=== PATIENT | female | born 1995 | race Hispanic/Latino ===

== ENCOUNTER 2018-08-06 15:31 | Outpatient (CLI) | payer MEDICAID ==
[2018-08-06] MEDS ORDERED: LACTATED RINGERS 500 ML IV ONE (15:46)
[2018-08-06 15:59] VITALS: BP 116/66
[2018-08-06 17:29] LABS: Bacteria,Urine 1+ /HPF (Negative); Bilirubin,Urine NEG (Negative); Blood,Urine NEG (Negative); Color,Urine Straw (Yellow); Mucus,Urine FEW /HPF; Protein,Urine <15 mg/dL mg/dL (Negative); Urobilinogen,Urine < 2.0 mg/dL (<2.0); WBC,Urine < 1.0 /HPF (0.0-6.0)
--- NOTE | 2018-08-06 18:28 | Ultrasound Report ---
FINAL REPORT EXAM: US OB LIMITED HISTORY: bebe TECHNIQUE: Ultrasound evaluation of the gravid uterus PRIORS: None. FINDINGS: There is a single viable intrauterine with documented cardiac activity. The quantity of vis ualized amniotic fluid appears grossly normal. Limited examination to evaluate amniotic fluid Heart rate: 162 beats per minute position: Cephalic Amniotic fluid index: 17.5cm IMPRESSION: Single viable intrauterine with normal quantity amniotic fluid
== END 2018-08-06 18:08 | disposition home or self-care (01) ==
LOC: TRG 15:31
PROVIDERS: ATTEND Obstetrics & Gynecology
DX: O47.03 False labor before 37 completed weeks of gestation, third trimester (principal); Z3A.35 35 weeks gestation of pregnancy
CPT/HCPCS: 59025; 76815; 81001; 96360; J7120

== ENCOUNTER 2018-08-23 23:24 | Outpatient (CLI) | payer MEDICAID ==
[2018-08-24] MEDS ORDERED: LACTATED RINGERS 1,000 ML IV SCH
[2018-08-24 00:37] LABS: Bilirubin,Urine NEG (Negative); Blood,Urine NEG (Negative); Color,Urine Yellow (Yellow); Mucus,Urine FEW /HPF; Protein,Urine <15 mg/dL mg/dL (Negative); Urobilinogen,Urine < 2.0 mg/dL (<2.0)
[2018-08-24] MEDS ORDERED: XYLOCAINE 1% MPF 5 mL INFILTRATI ONE (01:07)
[2018-08-24] MEDS ORDERED: ROCEPHIN IM ONE (01:20)
[2018-08-24] MEDS ORDERED: TYLENOL #3 PO ONE (01:20)
[2018-08-25 13:05] VITALS: BP 121/61
== END 2018-08-24 01:50 | disposition home or self-care (01) ==
LOC: TRG 23:24
PROVIDERS: ATTEND Obstetrics & Gynecology
DX: O62.8 Other abnormalities of forces of labor (principal); O26.893 Other specified pregnancy related conditions, third trimester; R10.2 Pelvic and perineal pain; M54.9 Dorsalgia, unspecified; Z3A.37 37 weeks gestation of pregnancy
CPT/HCPCS: 81001; J0696; J7120

== ENCOUNTER 2018-09-04 05:37 | Inpatient (IN) | payer MEDICAID ==
[2018-09-04] MEDS ORDERED: LACTATED RINGERS 1,000 ML IV SCH (06:00)
[2018-09-04] MEDS ORDERED: ANCEF/STERILE WATER 2 GM/20 ML 2 GM/20 ML SYRINGE IV NR (06:00)
[2018-09-04] MEDS ORDERED: PITOCin/NS 20 UNIT/1000ML DRIP 20 UNITS/1,000 ML BAG IV SCH ×2 (06:00→10:00)
[2018-09-04 06:26] LABS: Basophils % (Auto) 0.4 % (0.0-1.8); Eosinophils # (Auto) 0.2 K/mm3 (0.0-0.4); Eosinophils % (Auto) 1.7 % (0.0-4.3); Hematocrit 31.4 % (30.3-42.9); Hemoglobin 10.1 gm/dl (10.1-14.3); Lymphocytes # (Auto) 2.9 K/mm3 (1.2-5.4); Mean Corpuscular HGB Conc 32 % (30-34); Mean Corpuscular Volume 77 fl (79-97); Monocytes # (Auto) 1.2 K/mm3 (0.0-0.8); Monocytes % (Auto) 9.1 % (0.0-7.3); Platelet Count 319 K/mm3 (140-440); Red Blood Count 4.07 M/mm3 (3.65-5.03); Red Cell Distribution Width 16.8 % (13.2-15.2)
[2018-09-04] MEDS ORDERED: PEPCID IV ONE (07:00)
[2018-09-04] MEDS ORDERED: REGLAN IV ONE (07:00)
[2018-09-04] MEDS ORDERED: BICITRA PO ONE (07:00)
[2018-09-04] MEDS ORDERED: ZOFRAN ONE ×2 (07:58→08:49)
[2018-09-04] MEDS ORDERED: ASTRAMORPH PF 10MG/10ML ONE (07:58)
[2018-09-04] MEDS ORDERED: NEO SYNEPHRINE/NS Syringe(OR USE) IV ONE (08:18)
[2018-09-04] MEDS ORDERED: LACTATED RINGERS 1,000 ML ONE (08:25)
[2018-09-04] MEDS ORDERED: NACL 0.9% IR ONE (08:40)
[2018-09-04] MEDS ORDERED: WATER FOR IRRIG STERILE IR ONE (08:40)
[2018-09-04] MEDS ORDERED: VERSED ONE ×3 (08:43→08:57)
[2018-09-04] MEDS ORDERED: BENADRYL ONE (08:49)
[2018-09-04] MEDS ORDERED: TORADOL ONE (08:50)
[2018-09-04] MEDS ORDERED: NARCAN 0.4 MG/1 ML IV PRN ×2 (09:22→09:33)
[2018-09-04] MEDS ORDERED: LANSINOH TP PRN (09:22)
[2018-09-04] MEDS ORDERED: ZOFRAN IV PRN ×2 (09:22→09:33)
[2018-09-04] MEDS ORDERED: MYLICON PO PRN (09:22)
[2018-09-04] MEDS ORDERED: PHENERGAN PR PRN ×2 (09:22→09:33)
[2018-09-04] MEDS ORDERED: TUCKS PAD TP PRN (09:22)
[2018-09-04] MEDS ORDERED: MORPHINE IV PRN (09:22)
[2018-09-04] MEDS ORDERED: AFLURIA QUAD 2018-2019 SYRINGE IM ONE (09:22)
[2018-09-04] MEDS ORDERED: NUBAIN IV PRN (09:33)
[2018-09-04] MEDS ORDERED: PHENERGAN PO PRN (09:33)
--- NOTE | 2018-09-04 09:35 | Anesthesia Consultation ---
Anesthesia Consult and Med Hx - Airway Anesthetic Teeth Evaluation: Good ROM Head & Neck: Adequate Mental/Hyoid Distance: Adequate Mallampati Class: Class I Intubation Access Assessment: Good - Pulmonary Exam CTA: Yes - Cardiac Exam Cardiac Exam: RRR - Pre-Operative Health Status ASA Pre-Surgery Classification: ASA2 Proposed Anesthetic Plan: Spinal - Pulmonary Hx Smoking: Yes Hx Asthma: No COPD: No Hx Pneumonia: No - Cardiovascular System Hx Hypertension: No - Central Nervous System Hx Seizures: Yes (childhood-last seizure 12yrs old) Hx Psychiatric Problems: No - Endocrine Hx Renal Disease: No Hx End Stage Renal Disease: No Hx Hypothyroidism: No Hx Hyperthyroidism: No - Hematic Hx Anemia: Yes (not taking IRON) Hx Sickle Cell Disease: No - Other Systems Hx Alcohol Use: No Hx Obesity: Yes
--- NOTE | 2018-09-04 09:35 | History and Physical Report ---
History of Present Illness Date of examination: 09/04/18 Date of admission: 09/04/18 05:37 Chief complaint: I'm here for my History of present illness: Patient is a 23 year old who presents for elective repeat at 39.3 weeks with EDC 09/09/18. Patient has had an uncomplicated course except for presentation in the 2nd trimester. She is also requesting a tubal ligation today. Past History Past Medical History: no pertinent history Past Surgical History: section Social history: , smoking - Obstetrical History Expected Date of Delivery: 09/09/18 Actual Gestation: 39 Week(s) 2 Day(s) : 5 Para: 1 Medications and Allergies Allergies Allergy/AdvReac Type Severity Reaction Status Date / Time No Known Allergies Allergy Verified 09/04/18 05:51 Home Medications Medication Instructions Recorded Confirmed Last Taken Type Docusate Sodium [Colace] 100 mg PO BID PRN #60 capsule 09/11/15 Unknown Rx Ibuprofen [Motrin] 800 mg PO Q8HR PRN #30 tablet 09/11/15 Unknown Rx Oxycodone HCl/Acetaminophen 1 each PO Q6HR PRN #40 tablet 09/11/15 Unknown Rx [Percocet 7.5/325 mg] Cephalexin [Keflex] 500 mg PO BID #14 capsule 08/24/18 Unknown Rx Active Meds: Active Medications Cefazolin Sodium (Ancef/Sterile Water 2 Gm/20 Ml) 2 gm in 20 mls @ 80 mls/hr IV PREOP NR; Protocol Stop: 09/04/18 23:45 Lactated Ringer's (Lactated Ringers) 1,000 mls @ 2,250 mls/hr IV PREOP REJI Stop: 09/05/18 06:27 Oxytocin/Sodium Chloride (Pitocin/Ns 20 Unit/1000ml Drip) 20 units in 1,000 mls @ 0 mls/hr IV TITR REJI Review of Systems All systems: negative Gastrointestinal: abdominal pain - Vital Signs Vital signs: Vital Signs Pulse BP 76 117/70 09/04/18 06:13 09/04/18 06:13 Temp Pulse Resp BP Pulse Ox 97.4 F L 76 18 117/70 09/04/18 06:45 09/04/18 06:13 09/04/18 06:45 09/04/18 06:13 - Physical Exam Breasts: Cardiovascular: Regular rate, Normal S1, Normal S2 Lungs: Positive: Clear to auscultation, Normal air movement Abdomen: Positive: normal appearance, soft, normal bowel sounds. Negative: distention, tenderness Vulva: both: normal Vagina: Positive: normal moisture. Negative: discharge Cervix: Negative: lesion, discharge Uterus: Positive: normal size, normal contour Adnexa: both: normal Anus/Rectum: Positive: normal perianal skin, heme negative. Negative: rectal mass, hemorrhoids Extremities: Deep Tendon Reflex Grade: Normal +2 - Obstetrical FHR: auscultation normal Uterine Contraction Monitor Mode: External Cervical Dilatation: 0 Uterine Contraction Pattern: Absent Results Result Diagrams: 09/04/18 06:00 Abnormal lab results 09/04/18 Range/Units 06:00 WBC 13.3 H (4.5-11.0) K/mm3 MCV 77 L (79-97) fl MCH 25 L (28-32) pg RDW 16.8 H (13.2-15.2) % [place] % (Auto) 9.1 H (0.0-7.3) % [place] # 1.2 H (0.0-0.8) K/mm3 Seg Neutrophils # 8.9 H (1.8-7.7) K/mm3 All other labs normal. Assessment and Plan IUP at 39.3 weeks here for elective repeat . Admit for surgery. Will proceed as planned.
--- NOTE | 2018-09-04 09:36 | Post Anesthesia Evaluation ---
- Post Anesthesia Evaluation Patient Participated: Yes Airway Patent: Yes Stable Respiratory Function: Yes Nausea/Vomiting: No Temp > 96.8F: Yes Pain Manageable: Yes Adequeate Hydration: Yes Anesthesia Complications: No Block Receding Appropriately: Yes Patient on Ventilator: No
--- NOTE | 2018-09-04 09:36 | Anesthesia Day of Surgery ---
Anesthesia Day of Surgery - Day of Surgery Patient Examined: Yes Patient H&P Reviewed: Yes Patient is NPO: Yes Beta Blockers: No Cardiac Clearance: No Pulmonary Clearance: No Jesse's Test: N/A
--- NOTE | 2018-09-04 09:39 | Procedure Note ---
OB Delivery Note - Delivery Date of Delivery: 09/04/18 Surgeon: BRENT KWON Estimated blood loss: 500cc - Section Preop diagnosis: repeat , desires sterilization Postop diagnosis: same section procedure: repeat low transverse, bilateral tubal ligation Disposition: PACU Complications: none Narrative: see op report - Infant A at 1 minute: 8 at 5 minutes: 9 Gender: Female (7 pounds 3182 grams)
--- NOTE | 2018-09-04 09:44 | Operative Report ---
Operative Report Operative Report: The operative report for patient Verna Fung Date of service 09/09/2018 Preoperative diagnosis: Intrauterine at 39-2/7 weeks 2. Previous x 1 3. Undesired fertility Postoperative diagnosis: Same Procedure: Repeat low transverse section Surgeon: Dr. Cheryl Jean Baptiste EBL: 500 Urine output: 150 mL IV fluids: 2000 mL LR Findings: Viable female in the vertex occiput anterior position. Weight 7 lbs. 0 oz. 3182 g Apgars 8 and 9]. Otherwise normal pelvic anatomy Specimens: Portion of right and left fallopian tube Complications: None Procedure: The patient was admitted to the OR with IV running and in place. She was properly identified as herself. She was given spinal anesthesia in the OR without difficulty.. She was placed in the dorsal supine position with a leftward tilt. A Leger catheter was inserted. She was then prepped and draped in the normal sterile fashion. An Allis test was used to confirm adequate anesthesia. Once confirmed, the incision was made with the scalpel and carried to the underlying fascia using the scalpel and the Bovie. The fascia was incised in the midline and incision was extended bilaterally using the curved Zimmerman scissors. The fascia was then dissected from the underlying rectus muscles in a series of sharp and blunt dissection using the Zimmerman scissors and the scalpel due to extensive scar tissue. Muscles were in the in the midline sharply using Metzenbaum scissors and the peritoneum was entered into bluntly using the surgeon's fingers. A bladder blade was then placed into the incision to protect the bladder. Following this the bladder flap was created. Hysterotomy incision was then made in the scalpel. Upon uterine entry, the amniotic sac was ruptured for clear fluid. The infant was then delivered in the occiput anterior position. Her mouth and nose were suctioned on the field. The cord was clamped and cut and she was handed to the waiting NICU personnel. The placenta was delivered manually and taken off the field. The uterus was then exteriorized and cleared of all clots and debris. The hysterotomy incision was then closed in a running locked fashion using 0 Vicryl. Attention was then turned to the fallopian tubes. Each tube was grasped with a [place] clamp in the mid section and the tubes were ligated in the [place] fashion. The abdomen was then copiously irrigated with warm normal saline. Following this the uterus was replaced into the abdominal cavity. At this point the muscles were reapproximated in the midline using individual sutures of 0 Vicryl. Following this the fascia was closed in a running fashion using 0 Vicryl. Tissue was then copiously irrigated. A retention suture was placed in the subcuticular fat. Skin was closed in a running fashion using 3-0 Monocryl. The sponge lap needle and instrument counts were correct 2. There was excellent hemostasis. The patient tolerated the procedure well. She was taken to recovery in stable condition.
[2018-09-04] MEDS ORDERED: SODIUM CHLORIDE FLUSH SYRINGE 10 ML IV NR ×2 (10:00)
[2018-09-04] MEDS ORDERED: D5LR 1,000 ML IV SCH (10:00)
[2018-09-04] MEDS: TORADOL IV PRN ×2 (13:52→20:11)
[2018-09-04 21:17] LABS: Hematocrit 27.3 % (30.3-42.9); Hemoglobin 8.9 gm/dl (10.1-14.3)
[2018-09-05] MEDS: PERCOCET 5/325 PO PRN ×4 (05:16→20:11)
[2018-09-05] MEDS: PRENATAL VITAMIN PO SCH (10:21)
[2018-09-05] MEDS: FEOSOL PO SCH (10:21)
--- NOTE | 2018-09-05 22:41 | Progress Note ---
Assessment and Plan {PD 2 s/p r;tcs with btl. Doing well. Plan for discharge on tomorrow Subjective - Subjective Date of service: 09/05/18 Interval history: Patient is a 23 year old who presents for elective repeat at 39.3 weeks with EDC 09/09/18. Patient has had an uncomplicated course except for presentation in the 2nd trimester. She is also requesting a tubal ligation today. Patient reports: appetite normal, voiding normally, pain well controlled, ambulating normally [place]: doing well Objective - Vital Signs Latest vital signs: Vital Signs Temp Pulse Resp BP BP Pulse Ox 09/05/18 21:11 16 09/05/18 20:11 18 09/05/18 16:50 98.2 F 86 18 107/67 100 09/05/18 07:46 97.5 F L 82 18 115/81 98 09/05/18 05:16 20 09/05/18 04:40 98.4 F 73 20 124/53 09/05/18 02:11 80 96 09/05/18 00:00 98.2 F 80 20 100/50 09/04/18 22:53 20 Intake and Output 09/05/18 09/05/18 09/05/18 06:59 14:59 22:59 Intake Total 120 1320 Output Total 100 Balance 20 1320 Intake: Oral 120 600 Intake, Free Water 720 Output: Urine 100 Void 100 Other: Total, Intake Amount 120 600 Total, Output Amount 100 # Voids Void 1 4 - Exam Cardiovascular: Present: Regular rate, Normal S1, Normal S2 Lungs: Present: Clear to auscultation Abdomen: Present: normal appearance, soft Vulva: both: normal Uterus: Present: normal, firm Extremities: Present: normal Incision: Present: normal, dry, intact
[2018-09-06] MEDS: PERCOCET 5/325 PO PRN ×5 (02:30→20:20)
[2018-09-06] MEDS ORDERED: BOOSTRIX IM ONE (06:00)
[2018-09-06] MEDS: PRENATAL VITAMIN PO SCH (10:08)
[2018-09-06] MEDS: FEOSOL PO SCH (10:09)
[2018-09-06] MEDS ORDERED: M-M-R II VACCINE SUB-Q ONE (11:30)
[2018-09-06] MEDS: IBUPROFEN PO PRN (20:19)
[2018-09-07] MEDS: PERCOCET 5/325 PO PRN ×3 (03:27→12:52)
[2018-09-07] MEDS: IBUPROFEN PO PRN ×2 (03:27→09:05)
[2018-09-07] MEDS: FEOSOL PO SCH (10:44)
[2018-09-07] MEDS: PRENATAL VITAMIN PO SCH (10:44)
[2018-09-07] MEDS ORDERED: AFLURIA QUAD 2018-2019 SYRINGE IM ONE (12:00)
[2018-09-07 16:15] VITALS: BP 121/71
[2018-09-07] MEDS ORDERED: M-M-R II VACCINE SUB-Q ONE ×2 (17:39→17:57)
== END 2018-09-07 18:45 | disposition home or self-care (01) | DRG 765 ==
LOC: APU 05:37 → OB 11:21
PROVIDERS: ADMIT Obstetrics & Gynecology; ATTEND Obstetrics & Gynecology
PROC: 10D00Z1 Extraction of Products of Conception, Low, Open Approach (ICD-10-PCS; principal; 2018-09-04)
PROC: 0UB70ZZ Excision of Bilateral Fallopian Tubes, Open Approach (ICD-10-PCS; 2018-09-04)
DX: O34.211 Maternal care for low transverse scar from previous cesarean delivery (principal); D62 Acute posthemorrhagic anemia; Z3A.39 39 weeks gestation of pregnancy; Z37.0 Single live birth; O99.334 Smoking (tobacco) complicating childbirth; O99.214 Obesity complicating childbirth; E66.9 Obesity, unspecified; F17.200 Nicotine dependence, unspecified, uncomplicated; O99.02 Anemia complicating childbirth; Z30.2 Encounter for sterilization
CPT/HCPCS: 36415; 85014; 85018; 85025; 86592; 86850; 86900; 86901; 88302; 90686; 90707; 90715; G0378; A6250; J0690; J1200; J1885; J2250; J2274; J2300; J2370; J2405; J2590; J2765; J7120; J7121

== ENCOUNTER 2021-03-16 07:06 | Day surgery (SDC) | payer MEDICAID ==
[2021-03-16] MEDS ORDERED: POTASSIUM IODIDE/IODINE (LUGOLS) 30 ML TP ONE (08:36)
[2021-03-16] MEDS ORDERED: FERRIC SUBSULFATE TOPICAL SOLN 8 ML TP ONE (08:37)
[2021-03-16] MEDS ORDERED: HYDROmorphone 1 MG/1 ML INJ IV PRN ×2 (08:56)
[2021-03-16] MEDS ORDERED: LACTATED RINGERS 1,000 ML ONE (08:56)
[2021-03-16] MEDS ORDERED: ONDANSETRON 4 MG/2 ML INJ IV PRN (08:56)
[2021-03-16] MEDS ORDERED: LACTATED RINGERS 1,000 ML IV SCH (09:00)
[2021-03-16] MEDS ORDERED: MIDAZOLAM 2 MG/2 ML INJ IV NR (09:00)
--- NOTE | 2021-03-16 09:01 | Anesthesia Day of Surgery ---
Anesthesia Day of Surgery - Day of Surgery Patient Examined: Yes Patient H&P Reviewed: Yes Patient is NPO: Yes
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
[2021-03-16] MEDS ORDERED: HYDROmorphone 1 MG/1 ML INJ ONE (09:45)
[2021-03-16] MEDS ORDERED: propofoL 200 MG/20 ML VIAL IV ONE (09:46)
[2021-03-16] MEDS ORDERED: LIDOCAINE MPF (2%) 20 MG/1 ML VIAL 5 ML ONE (09:47)
[2021-03-16] MEDS ORDERED: ROCURONIUM 50 MG/5 ML INJ IV ONE (09:47)
[2021-03-16 10:13] LABS: Hematocrit 30.3 % (30.3-42.9); Hemoglobin 9.2 gm/dl (10.1-14.3)
[2021-03-16] MEDS ORDERED: LIDOCAINE 1%/EPINEPHRINE 1:100,000 VIAL (20 ML) INFILTRATI ONE ×2 (10:51→11:00)
[2021-03-16] MEDS ORDERED: ONDANSETRON 4 MG/2 ML INJ ONE (10:54)
[2021-03-16] MEDS ORDERED: dexAMETHasone 20 MG/5 ML VIAL ONE (10:54)
[2021-03-16] MEDS ORDERED: KETOROLAC 30 MG/1 ML INJ ONE (10:54)
[2021-03-16] MEDS ORDERED: SODIUM CHLORIDE 0.9% IRR 1,500 ML BOTTLE IR ONE (11:00)
--- NOTE | 2021-03-16 12:05 | Operative Report ---
Operative Report Operative Report: Preop diagnosis: HGSIL Postop diagnosis: Same Procedure LEEP/cone Surgeon: Dr. Marianna Jean Baptiste Anesthesia: Local MAC with 10 cc lidocaine with epinephrine Findings: Normal-appearing uterus and cervix EBL: 75 cc Urine output: 75 cc clear to plan of the procedure IV fluids: 1000 cc LR Procedure: Patient to the OR with IV running and in place. She was identified as herself. She was given local MAC anesthesia and placed in the dorsolithotomy position. She was then prepped and draped in normal sterile fashion. Attention was then turned to the patient's vagina. Her bladder was drained approximately 75 cc of clear yellow urine. A coated speculum was then placed patient's vagina. The cervix was visualized and was grasped with a coated tenaculum. The cervix was then injected at the 4 10 and 8:00 positions with lidocaine with epinephrine. Using the loop electrode, a portion of the cervix was removed. The tissue Proved to be somewhat solid and hard to remove with the cautery, therefore a scalpel was then used to remove any remaining areas. The base of the incision was cauterized with the rollerball. There was excellent hemostasis at this portion of the procedure. The patient the procedure well.
[2021-03-16 12:11] VITALS: BP 133/77
--- NOTE | 2021-03-16 15:33 | Post Anesthesia Evaluation ---
- Post Anesthesia Evaluation Patient Participated: Yes Airway Patent: Yes Stable Respiratory Function: Yes Nausea/Vomiting: No Temp > 96.8F: Yes Pain Manageable: Yes Adequeate Hydration: Yes Anesthesia Complications: No Block Receding Appropriately: Not Applicable Patient on Ventilator: No
== END 2021-03-16 12:56 | disposition home or self-care (01) ==
LOC: OR 07:06
PROVIDERS: ATTEND Obstetrics & Gynecology
DX: R87.613 High grade squamous intraepithelial lesion on cytologic smear of cervix (HGSIL) (principal); F32.9 Major depressive disorder, single episode, unspecified; Z86.73 Personal history of transient ischemic attack (TIA), and cerebral infarction without residual deficits; Z87.891 Personal history of nicotine dependence; Z98.890 Other specified postprocedural states; Z98.51 Tubal ligation status; Z79.899 Other long term (current) drug therapy
CPT/HCPCS: 36415; 57522; 81025; 85014; 85018; 88305; J1100; J1170; J1885; J2250; J2405; J2704; J7120; 88307